=== PATIENT | male | born 1990 | race Caucasian/White ===

== ENCOUNTER 2019-07-05 18:12 | Emergency (ER) | payer SELFPAY ==
--- NOTE | 2019-07-05 18:54 | EDM.PDOC ---
ED HPI GENERAL MEDICAL PROBLEM - General Chief Complaint: Neuro Symptoms/Deficits Stated Complaint: POSSIBLE SEIZURE COMING ON Time Seen by Provider: 07/05/19 18:54 - History of Present Illness INITIAL COMMENTS - FREE TEXT/NARRATIVE: 28-year-old male presents the emergency room room with a possible onset of a seizure. Patient lives in [place] and drove to [place] and back but does not remember doing this he knows that he did it. While back in [place] he went to pickle sorter his son from daycare was not quite himself and does not remember what he was doing at the time. He talked to his on the phone he was not clear where his son was at when in reality and the son was with him. Patient has not acted this way since he had a seizure disorder. This was diagnosed back in 2011. He did well after being on topiramate. After a couple of years sometime during 2014 his regular physician wean him off the topiramate as his seizure activity it essentially stopped. He is done well since that time. The patient recently moved to this area from [place] this occurred a couple weeks ago he has not yet established with a regular physician. - Related Data Allergies Allergy/AdvReac Type Severity Reaction Status Date / Time No Known Allergies Allergy Verified 07/05/19 18:29 Home Meds: Home Meds LORazepam [Ativan] 1 mg PO Q24H PRN #5 tablet 07/05/19 [Rx] Past Medical History HEENT History: Reports: None Cardiovascular History: Reports: None Respiratory History: Reports: None Gastrointestinal History: Reports: None Genitourinary History: Reports: None Musculoskeletal History: Reports: None Neurological History: Reports: Seizure Psychiatric History: Reports: None Endocrine/Metabolic History: Reports: Obesity/BMI 30+ Hematologic History: Reports: None Immunologic History: Reports: None Oncologic (Cancer) History: Reports: None Dermatologic History: Reports: None - Infectious Disease History Infectious Disease History: Reports: None Social & Family History - Tobacco Use Smoking Status *Q: Never Smoker - Caffeine Use Caffeine Use: Reports: Soda - Recreational Drug Use Recreational Drug Use: No ED ROS GENERAL - Review of Systems Review Of Systems: See Below Constitutional: Reports: No Symptoms HEENT: Reports: No Symptoms Respiratory: Reports: No Symptoms Cardiovascular: Reports: No Symptoms Endocrine: Reports: No Symptoms GI/Abdominal: Reports: No Symptoms : Reports: No Symptoms Musculoskeletal: Reports: No Symptoms Skin: Reports: No Symptoms Neurological: Reports: Confusion, Dizziness, Other (Has also had some lightheadedness). Denies: Headache, Seizure (Not have a seizure today but he thinks he was close to having 1 he has had this unusual behavior in the past just before having seizures), Syncope, Tingling, Change in Speech, Gait Disturbance Psychiatric: Reports: No Symptoms Hematologic/Lymphatic: Reports: No Symptoms Immunologic: Reports: No Symptoms ED EXAM, GENERAL - Physical Exam Exam: See Below Exam Limited By: No Limitations General Appearance: Alert, No Apparent Distress Eye Exam: Bilateral Eye: EOMI, Normal Inspection, PERRL Ears: Normal External Exam, Normal Canal, Hearing Grossly Normal, Normal TMs Nose: Normal Inspection, Normal Mucosa, No Blood Throat/Mouth: Normal Inspection, Normal Lips, Normal Teeth, Normal Gums, Normal Oropharynx, Normal Voice, No Airway Compromise Head: Atraumatic, Normocephalic Neck: Normal Inspection, Supple, Non-Tender, Full Range of Motion. No: Lymphadenopathy (L), Lymphadenopathy (R) Respiratory/Chest: No Respiratory Distress, Lungs Clear, Normal Breath Sounds Cardiovascular: Regular Rate, Rhythm, No Edema, No Murmur GI/Abdominal: Normal Bowel Sounds, Soft, Non-Tender Neurological: Alert, Oriented, CN II-XII Intact, Normal Cognition, Normal Gait, No Motor/Sensory Deficits Psychiatric: Normal Affect, Normal Mood Lymphatic: No Adenopathy Course - Vital Signs Last Recorded V/S: Last Vital Signs Temp 36.4 C 07/05/19 18:25 Pulse 85 07/05/19 18:25 Resp 16 07/05/19 18:25 BP 160/101 H 07/05/19 18:25 Pulse Ox 99 07/05/19 18:25 - Orders/Labs/Meds Labs: Laboratory Tests 07/05/19 07/05/19 07/05/19 Range/Units 19:30 19:30 20:38 WBC 10.48 H (4.23-9.07) K/mm3 RBC 5.99 (4.63-6.08) M/mm3 Hgb 16.4 (13.7-17.5) gm/dl Hct 49.6 (40.1-51.0) % MCV 82.8 (79.0-92.2) fl MCH 27.4 (25.7-32.2) pg MCHC 33.1 (32.2-35.5) g/dl RDW Std Deviation 42.1 (35.1-43.9) fL Plt Count 332 (163-337) K/mm3 MPV 9.9 (9.4-12.3) fl Neut % (Auto) 57.0 (34.0-67.9) % Lymph % (Auto) 33.7 (21.8-53.1) % Stafford % (Auto) 8.1 (5.3-12.2) % Eos % (Auto) 0.8 (0.8-7.0) Baso % (Auto) 0.2 (0.1-1.2) % Neut # (Auto) 5.98 H (1.78-5.38) K/mm3 Lymph # (Auto) 3.53 (1.32-3.57) K/mm3 Stafford # (Auto) 0.85 H (0.30-0.82) K/mm3 Eos # (Auto) 0.08 (0.04-0.54) K/mm3 Baso # (Auto) 0.02 (0.01-0.08) K/mm3 Sodium 139 (136-145) mEq/L Potassium 4.1 (3.5-5.1) mEq/L Chloride 102 (98-107) mEq/L Carbon Dioxide 29 (21-32) mEq/L Anion Gap 12.1 (5-15) BUN 11 (7-18) mg/dL Creatinine 1.1 (0.7-1.3) mg/dL Est Cr Clr Drug Dosing 109.74 mL/min Estimated GFR (MDRD) > 60 (>60) mL/min BUN/Creatinine Ratio 10.0 L (14-18) Glucose 96 (74-106) mg/dL Calcium 9.8 (8.5-10.1) mg/dL Total Bilirubin 0.3 (0.2-1.0) mg/dL AST 58 H (15-37) U/L ALT 51 (16-63) U/L Alkaline Phosphatase 92 (46-116) U/L Total Protein 8.4 H (6.4-8.2) g/dl Albumin 4.0 (3.4-5.0) g/dl Globulin 4.4 gm/dL Albumin/Globulin Ratio 0.9 L (1-2) TSH 3rd Generation 1.779 (0.358-3.74) uIU/mL Urine Color Yellow (Yellow) Urine Appearance Clear (Clear) Urine pH 7.0 (5.0-8.0) Ur Specific Gaylord 1.025 (1.005-1.030) Urine Protein Negative (Negative) Urine Glucose (UA) Negative (Negative) Urine Ketones Negative (Negative) Urine Occult Blood Negative (Negative) Urine Nitrite Negative (Negative) Urine Bilirubin Negative (Negative) Urine Urobilinogen 0.2 (0.2-1.0) Ur Leukocyte Esterase Negative (Negative) Urine RBC 0-5 (0-5) /hpf Urine WBC 0-5 (0-5) /hpf Ur Squamous Epith Cells 0-5 (0-5) /hpf Urine Bacteria Few (FEW) /hpf Urine Mucus Few (FEW) /hpf Urine Opiates Screen (FPMKRT=062) Ur Buprenorphine Scrn (CUTOFF=10) Ur Oxycodone Screen (CCC0TO=041) Urine Methadone Screen (BZH1WP=390) Ur Propoxyphene Screen (GVOAPN=379) Ur Barbiturates Screen (YEYVJC=904) Ur Tricyclics Screen (JNJPJN=071) Ur Phencyclidine Scrn (CUTOFF=25) Ur Amphetamine Screen (KQMFJW=666) U Methamphetamines Scrn (HWUVJX=638) U Benzodiazepines Scrn (PQTFMZ=770) U Cocaine Metab Screen (HWPDVS=693) U Marijuana (THC) Screen (CUTOFF=50) Ethyl Alcohol 0.00 (0.00) gm% 07/05/19 Range/Units 20:38 WBC (4.23-9.07) K/mm3 RBC (4.63-6.08) M/mm3 Hgb (13.7-17.5) gm/dl Hct (40.1-51.0) % MCV (79.0-92.2) fl MCH (25.7-32.2) pg MCHC (32.2-35.5) g/dl RDW Std Deviation (35.1-43.9) fL Plt Count (163-337) K/mm3 MPV (9.4-12.3) fl Neut % (Auto) (34.0-67.9) % Lymph % (Auto) (21.8-53.1) % Stafford % (Auto) (5.3-12.2) % Eos % (Auto) (0.8-7.0) Baso % (Auto) (0.1-1.2) % Neut # (Auto) (1.78-5.38) K/mm3 Lymph # (Auto) (1.32-3.57) K/mm3 Stafford # (Auto) (0.30-0.82) K/mm3 Eos # (Auto) (0.04-0.54) K/mm3 Baso # (Auto) (0.01-0.08) K/mm3 Sodium (136-145) mEq/L Potassium (3.5-5.1) mEq/L Chloride (98-107) mEq/L Carbon Dioxide (21-32) mEq/L Anion Gap (5-15) BUN (7-18) mg/dL Creatinine (0.7-1.3) mg/dL Est Cr Clr Drug Dosing mL/min Estimated GFR (MDRD) (>60) mL/min BUN/Creatinine Ratio (14-18) Glucose (74-106) mg/dL Calcium (8.5-10.1) mg/dL Total Bilirubin (0.2-1.0) mg/dL AST (15-37) U/L ALT (16-63) U/L Alkaline Phosphatase (46-116) U/L Total Protein (6.4-8.2) g/dl Albumin (3.4-5.0) g/dl Globulin gm/dL Albumin/Globulin Ratio (1-2) TSH 3rd Generation (0.358-3.74) uIU/mL Urine Color (Yellow) Urine Appearance (Clear) Urine pH (5.0-8.0) Ur Specific Gay[place] (1.005-1.030) Urine Protein (Negative) Urine Glucose (UA) (Negative) Urine Ketones (Negative) Urine Occult Blood (Negative) Urine Nitrite (Negative) Urine Bilirubin (Negative) Urine Urobilinogen (0.2-1.0) Ur Leukocyte Esterase (Negative) Urine RBC (0-5) /hpf Urine WBC (0-5) /hpf Ur Squamous Epith Cells (0-5) /hpf Urine Bacteria (FEW) /hpf Urine Mucus (FEW) /hpf Urine Opiates Screen Negative (LUWLZX=022) Ur Buprenorphine Scrn Negative (CUTOFF=10) Ur Oxycodone Screen Negative (AOB6WQ=139) Urine Methadone Screen Negative (HZK1OK=936) Ur Propoxyphene Screen Negative (EDYPRK=722) Ur Barbiturates Screen Negative (UNVOGC=311) Ur Tricyclics Screen Negative (VHBXZJ=677) Ur Phencyclidine Scrn Negative (CUTOFF=25) Ur Amphetamine Screen Negative (IJPGRD=253) U Methamphetamines Scrn Negative (VCKEUW=413) U Benzodiazepines Scrn Negative (BRKXAA=443) U Cocaine Metab Screen Negative (TXITHG=257) U Marijuana (THC) Screen Negative (CUTOFF=50) Ethyl Alcohol (0.00) gm% Meds: Medications Discontinued Medications Generic Name Dose Route Start Last Admin Trade Name Freq PRN Reason Stop Dose Admin Lorazepam 1 mg 07/05/19 19:15 07/05/19 19:41 Ativan IVPUSH 07/05/19 19:16 1 mg ONETIME ONE Administration - Re-Assessments/Exams Free Text/Narrative Re-Assessment/Exam: 07/05/19 20:27 Labs look good thus far still waiting on the urine. The patient is doing fine at this time. We discussed CT scanning decided to hold off he did not actively have a seizure and he has a normal neurologic exam 07/05/19 22:04 Urine looks good drug screen is fine. I will discharge patient with a few Ativan he was to follow-up with neurology and establish with a regular provider 07/05/19 22:05 Departure - Departure Time of Disposition: 22:04 Disposition: Home, Self-Care 01 Clinical Impression: Transient confusion, History of seizure disorder - Discharge Information Prescriptions: LORazepam [Ativan] 1 mg PO Q24H PRN #5 tablet PRN Reason: Anxiety Referrals: PCP,Not In Area [Primary Care Provider] - Forms: ED Department Discharge Additional Instructions: Return to the emergency room with any questions problems or worsening symptoms. Establish with a regular provider as soon as he can follow-up with neurology in [place] as soon as you can. You will be discharged home with some Ativan take 1 of these if the spells occur. Return to the closest emergency room if you actively have a seizure. Avoid driving until this is all sorted out. Sepsis Event Note - Evaluation Sepsis Screening Result: No Definite Risk - Focused Exam Vital Signs: Vital Signs Temp Pulse Resp BP Pulse Ox 07/05/19 18:25 36.4 C 85 16 160/101 H 99 Date Exam was Performed: 07/05/19 Time Exam was Performed: 22:04
[2019-07-05] MEDS ORDERED: LORazepam 2 MG/ML SDV IVPUSH ONE (19:15)
== END 2019-07-05 22:21 | disposition home or self-care (01) ==
LOC: JD.ED 18:12
DX: R41.0 Disorientation, unspecified (principal); Z86.69 Personal history of other diseases of the nervous system and sense organs
CPT/HCPCS: 36415; 80053; 80306; 80320; 81001; 84443; 85025; 96374; 99284; J2060; G0480